=== PATIENT | male | born 1955 | race Caucasian/White ===

== ENCOUNTER 2020-06-13 10:32 | Outpatient (CLI) | payer MEDICARE ==
[2020-06-13] MEDS ORDERED: DOXA4TAB3 PO (11:11)
== END 2020-06-13 23:59 | disposition home or self-care (01) ==
LOC: STAR 10:32
PROVIDERS: ATTEND Orthopaedic Surgery
DX: Z01.818 Encounter for other preprocedural examination (principal); M25.552 Pain in left hip; M16.12 Unilateral primary osteoarthritis, left hip; R94.31 Abnormal electrocardiogram [ECG] [EKG]; Z20.822 Contact with and (suspected) exposure to COVID-19
CPT/HCPCS: 93005; U0003

== ENCOUNTER 2020-06-19 10:00 | Day surgery (SDC) | payer MEDICARE ==
[~2020-06-19] VITALS: Ht 175.3 cm; Wt 99.4 kg
[~2020-06-19 10:00] MED LIST: DOXA4TAB3 PO
[2020-06-19] MEDS ORDERED: ADVAIR INH (10:23)
[2020-06-19] MEDS ORDERED: LACTATED RINGERS 1,000 ML IV SCH (10:30)
[2020-06-19] MEDS ORDERED: CHLORHEXIDINE 15 ML UDC PO ONE (10:30)
[2020-06-19 10:44] VITALS: BP 129/81
[2020-06-19] MEDS ORDERED: FENTANYL PF 100 MCG/2ML ONE ×4 (12:25→14:05)
[2020-06-19] MEDS ORDERED: NEOSTIGMINE 1 MG/ML, 10ML ONE (13:30)
[2020-06-19] MEDS ORDERED: CEFAZOLIN 1,000 MG ONE (13:30)
[2020-06-19] MEDS ORDERED: ROCURONIUM 10MG/ML,5ML ONE (13:30)
[2020-06-19] MEDS ORDERED: GLYCOPYRROLATE 0.2MG/1ML, 5ML ONE (13:30)
[2020-06-19] MEDS ORDERED: ONDANSETRON 2MG/ML, 2ML ONE (13:30)
[2020-06-19] MEDS ORDERED: DEXAMETHASONE 4 MG/ML, 1ML ONE (13:30)
[2020-06-19] MEDS ORDERED: SUCCINYLCHOLINE 20 MG/ML, 10ML ONE (13:30)
[2020-06-19] MEDS ORDERED: PROPOFOL 10 MG/ML, 20ML ONE (13:30)
[2020-06-19] MEDS ORDERED: KETOROLAC 30 MG/1 ML ONE (13:40)
[2020-06-19] MEDS: FENTANYL PF 100 MCG/2ML IV PRN ×5 (13:42→14:20)
[2020-06-19] MEDS ORDERED: OXYcodone 5 MG/5 ML ORAL.SOL UDC ONE (13:53)
[2020-06-19] MEDS ORDERED: ACETAMINOPHEN 650 MG/20.3 ML UDC ONE (13:53)
[2020-06-19] MEDS ORDERED: KETOROLAC 30 MG/1 ML IV PRN (14:00)
[2020-06-19] MEDS ORDERED: ALBUTEROL SULFATE 2.5 MG/3 ML NPPB PRN (14:00)
[2020-06-19] MEDS ORDERED: MEPERIDINE/PF 25MG/0.5ML IVPush PRN (14:00)
[2020-06-19] MEDS ORDERED: PROMETHAZINE 25 MG/ML, 1ML IV PRN (14:00)
[2020-06-19] MEDS ORDERED: DIAZEPAM 5 MG/ML, 2ML IVPush PRN (14:00)
[2020-06-19] MEDS ORDERED: hydrALAzine 20 MG/ML, 1ML IV PRN (14:00)
[2020-06-19] MEDS ORDERED: LABETALOL 5MG/ML, 20ML IV PRN (14:00)
[2020-06-19] MEDS ORDERED: HYDROmorphone 2 MG/ML, 1ML IVPush PRN (14:00)
[2020-06-19] MEDS ORDERED: OXYcodone 5 MG/5 ML ORAL.SOL UDC PO PRN (14:00)
[2020-06-19] MEDS ORDERED: ACETAMINOPHEN 325 MG TABLET PO PRN (14:00)
== END 2020-06-19 17:00 | disposition home or self-care (01) ==
LOC: OUT 10:00
PROVIDERS: ATTEND Orthopaedic Surgery
DX: Z47.2 Encounter for removal of internal fixation device (principal); M16.12 Unilateral primary osteoarthritis, left hip; J45.909 Unspecified asthma, uncomplicated; Z79.899 Other long term (current) drug therapy; Z87.891 Personal history of nicotine dependence; Z88.5 Allergy status to narcotic agent; Z98.890 Other specified postprocedural states; Z82.61 Family history of arthritis
CPT/HCPCS: 20680; 73501; J0330; J0690; J1100; J1885; J2405; J2704; J2710; J3010; J7120; 76000